=== PATIENT | female | born 1970 | race Caucasian/White ===

== ENCOUNTER 2020-02-04 12:34 | Outpatient (CLI) | payer BC ==
--- NOTE | 2020-02-04 13:46 | MRI ---
MRI OF THE LEFT KNEE: 02/04/20 PROVIDED CLINICAL HISTORY: Patellofemoral pain syndrome. FINDINGS: The anterior cruciate ligament, posterior cruciate ligament, medial collateral ligament and lateral c ollateral ligamentous complex demonstrate an intact MR appearance, as does the extensor mechanism. Pa tella beatriz is demonstrated. The medial and lateral menisci demonstrate no evidence for tear. There is lateral patellar tilt. The TT-TG distance is 13 mm. There is articular cartilage irregularit y with full thickness articular cartilage loss involving the caudal aspect of the lateral patellar fa cet and median ridge. There is articular cartilage irregularity with full thickness fissuring involvi ng the lateral aspects of the lateral femoral trochlear articular cartilage with subcortical cyst-lik e change. Femorotibial articular cartilage appears preserved. The amount of fluid within the knee joint appears physiologic. No focal concerning regional marrow or muscular signal abnormality apparent. IMPRESSION: Patellofemoral articular chondrosis. POS: [id number]
== END 2020-02-04 12:35 | disposition home or self-care (01) ==
LOC: SCSMRI 12:34
PROVIDERS: ATTEND Orthopaedic Surgery
DX: M22.2X2 Patellofemoral disorders, left knee (principal)